=== PATIENT | male | born 1970 | race Two or more races ===

== ENCOUNTER 2025-11-13 13:01 | Emergency (ER) | payer MEDICAID, SELFPAY ==
[2025-11-13 13:47] VITALS: BP 175/95; PULSE 77; RESP 20; TEMP 36.9; O2SAT 95; BMI 41.3
[2025-11-13] MEDS: LIDOCAINE HCL 1% 20 ML VIAL 2.1 ML INFL (13:59)
[2025-11-13] MEDS: cefTRIAXone SOD INJ 1,000 MG VIAL 1000 MG IM (13:59)
[2025-11-13] MEDS: KETOROLAC INJ 30 MG/ML VIAL IM (14:00)
--- NOTE | 2025-11-13 14:01 | EDNOTE_ITS ---
<Statement entered by Andria Hurst MD - 11/28/25 07:26> As co-signing physician, I was present and available for consult prn. I concur with the plan and care as documented by the midlevel provider. ED Dental RME/HPI General Chief complaint: Dental/Oral/Throat Stated complaint: SWELLING R) TOOTH Time Seen by Provider: 11/13/25 13:07 Arrival date/time: 11/13/25 13:01 55-year-old male presents to the Emergency Department or complains of right- sided dental pain and right-sided facial swelling x 1 day patient reports no difficulty breathing or swallowing patient does report dental pain Limitations: no limitations Related Data Previous Rx's ?Medication ?Instructions ?Recorded clindamycin HCl 150 mg capsule 450 mg (3 x 150 mg) PO TID 7 days 11/13/25 #63 caps ibuprofen 800 mg tablet 800 mg PO TID PRN pain #30 t abs 11/13/25 Allergies Allergy/AdvReac Type Severity Reaction Status Date / Time No Known Allergies Allergy Verified 11/13/25 13:06 Review of Systems Review of Systems Systems Reviewed: All systems reviewed, normal except as documented Constitutional Constitutional: Reports system reviewed and no additional complaints, except as documented, Denies fever(s) and Denies headache(s) Eyes Eyes: Reports system reviewed and no additional complaints, except as documented and Denies blurry vision ENT Ears, Nose, Mouth, and Throat: Reports system reviewed and no additional complaints, except as documented, Reports dental pain, Denies headache(s), Denies nasal congestion and Denies nasal discharge Cardiovascular Cardiovascular: Reports system reviewed and no additional complaints, except as documented, Denies chest pain and Denies dyspnea Respiratory Respiratory: Reports system reviewed and no additional complaints, except as documented, Denies chest congestion, Denies cough and Denies dyspnea Gastrointestinal Gastrointestinal: Reports system reviewed and no additional complaints, except as documented and Denies abdominal pain Integumentary/Breasts Skin/Breast: Reports system reviewed and no additional complaints, except as documented and Denies rash Neurologic Neurologic: Reports system reviewed and no additional complaints, except as documented, Reports as per HPI and Denies headache(s) Past Medical History Social History SMOKING STATUS: Never smoker ED Exam General Limitations: Present no limitations General appearance: Present alert and in no apparent distress Head Head exam: Present atraumatic, normocephalic and normal inspection Eye Eye exam: Present normal appearance, PERRL and EOMI ENT ENT exam: Present mucous membranes moist Expanded ENT Exam Teeth exam: Present dental caries, fractured tooth #, dental tenderness # and gingival swelling Neck Neck exam: Present normal inspection, full ROM and trachea midline Chest Chest inspection: Present normal inspection and symmetric chest wall rise Respiratory Respiratory exam: Present normal lung sounds bilaterally Cardiovascular Cardiovascular exam: Present regular rate, normal rhythm and normal heart sounds Abdominal Exam Abdominal exam: Present soft and normal bowel sounds Extremities Exam Extremities exam: Present normal inspection and full ROM Back Exam Back exam: Present normal inspection and full ROM Neurological Exam Neurological exam: Present alert, oriented X3 and CN II-XII intact Psychiatric Psychiatric exam: Present normal affect and normal mood Skin Skin exam: Present warm, dry, intact and normal color Course Quality Measures none Orders Category Date Time Status Ketorolac Inj [Toradol Inj] Med 11/13/25 13:51 Discontinued 30 mg IM X1 ONE Lidocaine 1% Vial 20 ml [Xylocaine 1% 20 ML] Med 11/13/25 13:51 Discontinued 2.1 ml INFL X1 ONE cefTRIAXone [Rocephin] Med 11/13/25 13:51 Discontinued 1,000 mg IM X1 ONE Vital Signs Vital signs: Vital Signs Temperature 98.5 F 11/13/25 13:47 Pulse Rate 77 11/13/25 13:47 Respiratory Rate 20 11/13/25 13:47 Blood Pressure 175/95 H 11/13/25 13:47 Pulse Oximetry (%) 95 11/13/25 13:47 Oxygen Delivery Method Room Air 11/13/25 13:47 O2 saturation 95% room air within normal limits Dental / Oral MDM Narrative MDM Narrative:: 55-year-old male presents to the Emergency Department or complains of right- sided dental pain and right-sided facial swelling x 1 day patient reports no difficulty breathing or swallowing patient does report dental pain Clinically patient has poor dentition and right-sided facial swelling Clinically patient has infection of the tooth most likely dental abscess Patient given antibiotics and Toradol for pain Patient struck to return for evaluation tomorrow and repeat injection For emergent concerns patient instructed to return immediately Patient data External records reviewed:: [facility] previous records Clinical information provided by:: patient Social determinants that could affect healthcare access:: none Patient has the following chronic illnesses:: See history How is presenting disease/condition affected by chronic disease/condition?: uneffected by Evaluation data The following diagnostics were reviewed and interpreted by me:: other (specify) Lab and/or radiology exams considered but not ordered:: Considered not ordered Interpretation Summary: N/A Medications / Prescriptions Medications or Prescriptions considered but not ordered:: Given Medication administrations:: Medication Administration History Discontinued Medications Ceftriaxone Sodium (Ceftriaxone Sod Inj 1,000 Mg Vial) 1,000 mg IM X1 ONE Stop: 11/13/25 13:52 Last Admin: 11/13/25 13:59 Dose: 1,000 mg Documented By: OA Ketorolac Tromethamine (Ketorolac Inj 30 Mg/Ml Vial) 30 mg IM X1 ONE Stop: 11/13/25 13:52 Last Admin: 11/13/25 14:00 Dose: 30 mg Documented By: OA Lidocaine HCl (Lidocaine Hcl 1% 20 Ml Vial) 2.1 ml INFL X1 ONE Stop: 11/13/25 13:52 Last Admin: 11/13/25 13:59 Dose: 2.1 ml Documented By: OA Given Consultations Consultation(s) initiated? (list below): No Diagnosis Dental Differential Diagnosis: gingival abscess, dental caries, toothache and dental abscess Most likely diagnosis given after review of the tests above:: Dental abscess Admission Indicated Admission indicated?: not indicated Admission Request Was there a request for admission?: No Disposition Plan Disposition Plan: Discharge Discharge Attestation Discharge Attestation: The patient and all family members were given an opportunity to ask questions and understood the discharge instructions. Discharge instructions specifically effects, indications for sooner follow up or return to the emergency department, and the expected course of current diagnosis. Patient condition: Stable Discharge Plan Plan Patient Disposition: HOME (Self Care) Discharge Disposition comment: Stable Prescriptions/Referrals Prescriptions/Med Rec: New ibuprofen 800 mg tablet 800 mg PO TID PRN (Reason: pain) Qty: 30 0RF clindamycin HCl 150 mg capsule 450 mg PO TID 7 Days Qty: 63 0RF Problem List Clinical Impression: Dental abscess Patient/Caregiver Discharge Instructions Education Materials: ED Dental Abscess Additional Instructions: Please return tomorrow for repeat injection for worsening symptoms return immediately Print Language: Yemeni Stand Alone Forms: Mami Award Info., Patient Portal Info Letter PA/TAFE LECTURER Supervising Physician PA/ALTAF Supervising Physician: dr hurst
== END 2025-11-13 14:06 | disposition home or self-care (01) ==
LOC: SERX 14:20
PROVIDERS: Emergency Provider Emergency Medicine
DX: K04.7 Periapical abscess without sinus (principal)
CPT/HCPCS: 96372; 99282; J0696; J1885; J3490

== ENCOUNTER 2025-11-14 11:14 | Emergency (ER) | payer MEDICAID, SELFPAY ==
[2025-11-14] MEDS: cefTRIAXone SOD INJ 1,000 MG VIAL 1000 MG IM (11:36)
[2025-11-14] MEDS: KETOROLAC INJ 30 MG/ML VIAL IM (11:36)
[2025-11-14] MEDS: LIDOCAINE HCL 1% 20 ML VIAL 2.1 ML INFL (11:37)
--- NOTE | 2025-11-14 11:42 | PD.EDDENTL ---
ED Dental RME/HPI General Chief complaint: Dental/Oral/Throat Stated complaint: REPEAT VISIT FOR PAIN SHOT Time Seen by Provider: 11/14/25 11:18 Arrival date/time: 11/14/25 11:14 55-year-old male with dental infection seen by myself yesterday was instructed return today for repeat Rocephin injection reevaluation Limitations: no limitations Related Data Previous Rx's ?Medication ?Instructions ?Recorded clindamycin HCl 150 mg capsule 450 mg (3 x 150 mg) PO TID 7 days 11/13/25 #63 caps ibuprofen 800 mg tablet 800 mg PO TID PRN pain #30 tabs 11/13/25 Allergies Allergy/AdvReac Type Severity Reaction Status Date / Time No Known Allergies Allergy Verified 11/14/25 11:18 Review of Systems Review of Systems Systems Reviewed: All systems reviewed, normal except as documented Constitutional Constitutional: Reports system reviewed and no additional complaints, except as documented, Denies fever(s) and Denies headache(s) Eyes Eyes: Reports system reviewed and no additional complaints, except as documented and Denies blurry vision ENT Ears, Nose, Mouth, and Throat: Reports system reviewed and no additional complaints, except as documented, Reports dental pain, Denies headache(s), Denies nasal congestion and Denies nasal discharge Cardiovascular Cardiovascular: Reports system reviewed and no additional complaints, except as documented, Denies chest pain and Denies dyspnea Respiratory Respiratory: Reports system reviewed and no additional complaints, except as documented, Denies chest congestion, Denies cough and Denies dyspnea Gastrointestinal Gastrointestinal: Reports system reviewed and no additional complaints, except as documented and Denies abdominal pain Integumentary/Breasts Skin/Breast: Reports system reviewed and no additional complaints, except as documented and Denies rash Neurologic Neurologic: Reports system reviewed and no additional complaints, except as documented, Reports as per HPI and Denies headache(s) Past Medical History Social History SMOKING STATUS: Never smoker ED Exam General Limitations: Present no limitations General appearance: Present alert and in no apparent distress Head Head exam: Present atraumatic, normocephalic and normal inspection Eye Eye exam: Present normal appearance, PERRL and EOMI ENT ENT exam: Present mucous membranes moist and other (Right-sided facial swelling) Neck Neck exam: Present normal inspection, full ROM and trachea midline Chest Chest inspection: Present normal inspection and symmetric chest wall rise Respiratory Respiratory exam: Present normal lung sounds bilaterally Cardiovascular Cardiovascular exam: Present regular rate, normal rhythm and normal heart sounds Abdominal Exam Abdominal exam: Present soft and normal bowel sounds Extremities Exam Extremities exam: Present normal inspection and full ROM Back Exam Back exam: Present normal inspection and full ROM Neurological Exam Neurological exam: Present alert, oriented X3 and CN II-XII intact Psychiatric Psychiatric exam: Present normal affect and normal mood Skin Skin exam: Present warm, dry, intact and normal color Course Quality Measures none Orders Category Date Time Status Ketorolac Inj [Toradol Inj] Med 11/14/25 11:22 Discontinued 30 mg IM X1 ONE Lidocaine 1% Vial 20 ml [Xylocaine 1% 20 ML] Med 11/14/25 11:22 Discontinued 2.1 ml INFL X1 ONE cefTRIAXone [Rocephin] Med 11/14/25 11:22 Discontinued 1,000 mg IM X1 ONE Vital Signs Vital signs: Vital Signs Temperature 98.2 F 11/14/25 12:03 Pulse Rate 88 11/14/25 12:03 Respiratory Rate 16 11/14/25 12:03 Blood Pressure 128/72 11/14/25 12:03 Pulse Oximetry (%) 99 11/14/25 12:03 O2 saturation 9 9% on room air within the limits Dental / Oral MDM Narrative MDM Narrative:: 55-year-old male with dental infection seen by myself yesterday was instructed return today for repeat Rocephin injection reevaluation On exam patient has swelling to the right side of his face but symptoms have significantly proved and yesterday Patient is medical breathing or swallowing Patient given pain medication here as well as antibiotics and discharged home Patient discharged home in no distress to follow-up with dentist in the next 24 to 48 hours and for any worsening symptoms to return to the ER immediately Patient data External records reviewed:: [facility] previous records Clinical information provided by:: patient Social determinants that could affect healthcare access:: none Patient has the following chronic illnesses:: see history How is presenting disease/condition affected by chronic disease/condition?: uneffected by Evaluation data The following diagnostics were reviewed and interpreted by me:: other (specify) Lab and/or radiology exams considered but not ordered:: Considered not indicated Interpretation Summary: N/A Medications / Prescriptions Medications or Prescriptions considered but not ordered:: Given Medication administrations:: Medication Administration History Discontinued Medications Ceftriaxone Sodium (Ceftriaxone Sod Inj 1,000 Mg Vial) 1,000 mg IM X1 ONE Stop: 11/14/25 11:23 Last Admin: 11/14/25 11:36 Dose: 1,000 mg Documented By: OA Ketorolac Tromethamine (Ketorolac Inj 30 Mg/Ml Vial) 30 mg IM X1 ONE Stop: 11/14/25 11:23 Last Admin: 11/14/25 11:36 Dose: 30 mg Documented By: OA Lidocaine HCl (Lidocaine Hcl 1% 20 Ml Vial) 2.1 ml INFL X1 ONE Stop: 11/14/25 11:23 Last Admin: 11/14/25 11:37 Dose: 2.1 ml Documented By: OA Given Consultations Consultation(s) initiated? (list below): No Diagnosis Dental Differential Diagnosis: gingival abscess, dental caries, toothache and dental abscess Most likely diagnosis given after review of the tests above:: Pain Admission Indicated Admission indicated?: not indicated Admission Request Was there a request for admission?: No Disposition Plan Disposition Plan: Discharge Discharge Attestation Discharge Attestation: The patient and all family members were given an opportunity to ask questions and understood the discharge instructions. Discharge instructions specifically effects, indications for sooner follow up or return to the emergency department, and the expected course of current diagnosis. Patient condition: Stable Discharge Plan Plan Patient Disposition: HOME (Self Care) Discharge Disposition comment: Stable Prescriptions/Referrals Prescriptions/Med Rec: No Action ibuprofen 800 mg tablet 800 mg PO TID PRN (Reason: pain) Qty: 30 0RF clindamycin HCl 150 mg capsule 450 mg PO TID 7 Days Qty: 63 0RF Problem List Clinical Impression: Dental abscess Patient/Caregiver Discharge Instructions Education Materials: Dental Abscess Additional Instructions: Please follow-up dentist as discussed for worsening symptoms return immediately Please take medication prescribed yesterday Print Language: Chadian Stand Alone Forms: Mami Award Info., Patient Portal Info Letter PA/CUSTOMER DEVELOPMENT REPRESENTATIVE Supervising Physician PA/ALTAF Supervising Physician: Dr. Eckert
[2025-11-14 12:03] VITALS: BP 128/72; PULSE 88; RESP 16; TEMP 36.8; O2SAT 99
== END 2025-11-14 12:04 | disposition home or self-care (01) ==
LOC: SERX 11:57
PROVIDERS: Emergency Provider Family Medicine
DX: K04.7 Periapical abscess without sinus (principal)
CPT/HCPCS: 96372; 99282; J0696; J1885; J3490